=== PATIENT | female | born 1955 | race Caucasian/White ===

== ENCOUNTER → 2017-03-04 | Outpatient (CLI) | payer BC ==
[2017-03-04 11:55] LABS: CH 29.5; CHCM 34.5; HCT 46.6 % (34.0-46.0); HDW 2.67; HGB 15.7 gm/dL (11.4-16.0); MCHC 33.8 g/dL (31.0-37.0); MCV 85.9 fL (80.0-100.0); Mean Platelet Volume 6.6; RBC 5.42 m/uL (3.80-5.40); WBC 14.5 k/uL (3.8-10.6)
[2017-03-04 12:04] LABS: Appearance,Urine Clear (Clear); Bilirubin,Urine Negative (Negative); Glucose,Urine (UA) Negative (Negative); Ketones,Urine Negative (Negative); Leukocyte Esterase,Urine Negative (Negative); Nitrite,Urine Negative (Negative); PH, Urine 5.5 (5.0-8.0); Protein,Urine Negative (Negative); Specific Gravity,Urine 1.017 (1.001-1.035); UA Billing (MACRO vs. MICRO) CHEM; Urobilinogen,Urine <2.0 mg/dL (<2.0)
[2017-03-04 12:25] LABS: ALT 54 U/L (9-52); AST 28 U/L (14-36); Alkaline Phosphatase 128 U/L (38-126); Anion Gap 15 mmol/L; Blood Urea Nitrogen 17 mg/dL (7-17); Calcium 10.1 mg/dL (8.4-10.2); Carbon Dioxide 24 mmol/L (22-30); Chloride 105 mmol/L (98-107); Cholesterol 247 mg/dL (<200); Glucose 126 mg/dL (74-99); HDL Cholesterol 45 mg/dL (40-60); Non-African American GFR(MDRD) >60 (>60 ml/min/1.73 sqM); Potassium 4.6 mmol/L (3.5-5.1); Sodium 144 mmol/L (137-145); Total Bilirubin 0.4 mg/dL (0.2-1.3); Total Protein 7.7 g/dL (6.3-8.2); Triglycerides 209 mg/dL (<150)
--- NOTE | 2017-03-04 15:37 | XR ---
EXAMINATION TYPE: XR chest 2V DATE OF EXAM: 03/04/2017 HISTORY: Z00.00 Wellness check. REFERENCE: NONE. FINDINGS: The lungs are clear. Pleural spaces are clear. The heart is not enlarged. IMPRESSION: NO ACUTE INTRATHORACIC ABNORMALITY.
== END | disposition home or self-care (01) ==
LOC: LABWHC1 11:28
PROVIDERS: ATTEND Internal Medicine
DX: Z00.00 Encounter for general adult medical examination without abnormal findings (principal); I11.9 Hypertensive heart disease without heart failure; E78.2 Mixed hyperlipidemia; K21.0 Gastro-esophageal reflux disease with esophagitis; R35.0 Frequency of micturition
CPT/HCPCS: 36415; 71020; 80053; 80061; 81003; 84439; 84443; 85027

== ENCOUNTER → 2017-04-06 | Outpatient (CLI) | payer BC ==
[2017-04-06 13:49] LABS: Glucose 111 mg/dL (74-99)
[2017-04-06 14:21] LABS: Hepatitis B Surface Ag Index 0.07
[2017-04-06 14:26] LABS: Hepatitis B Core IgM Index 0.03
[2017-04-06 14:38] LABS: Hepatitis C Virus IgG Ab Negative (Negative); Hepatitis C Virus IgG Index 0.04
[2017-04-06 18:36] LABS: Hemoglobin A1C 6.2 % (4.2-6.1)
== END | disposition home or self-care (01) ==
LOC: LABWHC1 12:41
PROVIDERS: ATTEND Internal Medicine
DX: E11.9 Type 2 diabetes mellitus without complications (principal); R94.5 Abnormal results of liver function studies
CPT/HCPCS: 36415; 80074; 82947; 83036

== ENCOUNTER → 2018-11-07 | Outpatient (CLI) | payer BC ==
[2018-11-07 18:35] LABS: LDL Cholesterol,Calculated 156.2 mg/dL (0.0-131.0); VLDL Calculation 71.8 mg/dL (5.00-40.00)
[2018-11-07 18:36] LABS: Anion Gap 13.1 mmol/L (4.00-12.00); Calcium 10.2 mg/dL (8.7-10.3); Carbon Dioxide 27.9 mmol/L (21.6-31.8); Potassium 4.4 mmol/L (3.5-5.5)
== END | disposition home or self-care (01) ==
LOC: LABWHC1 12:18
PROVIDERS: ATTEND Internal Medicine
DX: E78.2 Mixed hyperlipidemia (principal); I11.9 Hypertensive heart disease without heart failure
CPT/HCPCS: 36415; 80048; 80061; 82550; 84450; 84460

== ENCOUNTER 2023-09-04 13:43 | Emergency (ER) | payer MEDICARE ==
--- NOTE | 2023-09-04 14:37 | ED ---
General Adult HPI - General Source: patient, RN notes reviewed Mode of arrival: ambulatory Limitations: no limitations <Mary Nuno - Last Filed: 09/04/23 14:36> - General Source: RN notes reviewed, old records reviewed Mode of arrival: ambulatory Limitations: no limitations - History of Present Illness -: days(s) Location: chest, back, abdomen Radiation: abdomen Severity scale (1-10): 7 Quality: aching Consistency: constant, intermittent Improves with: none Worsens with: none Associated Symptoms: denies other symptoms Treatments Prior to Arrival: none <Abraham Kenney - Last Filed: 09/18/23 20:44> - General Stated complaint: Bumps all over Body Time Seen by Provider: 09/04/23 14:36 - History of Present Illness Initial comments: 67-year-old femalepresents the emergency department with itchy bumps all over her body and progressively has gotten worse over the last week. (Mary Nuno) This is a 67-year-old female to the emergency department for evaluation of an itchy rash over the course of her body. Patient has no family members with recent known sugars is currently rash. Patient does live alone has had issues with fleas in the past does not believe that is the case currently. Patient is very itchy cannot control her scratching. No fevers no other complaints no change in medications or travel history or sick contacts (Abraham Kenney) - Related Data Previous Rx's Medication Instructions Recorded predniSONE [Deltasone] 20 mg PO BID 5 Days #10 tab 10/24/22 Famotidine [Pepcid] 40 mg PO BID #30 tablet 09/04/23 hydrOXYzine HCL [Atarax] 25 mg PO TID PRN #15 tab 09/04/23 predniSONE 50 mg PO DAILY #5 tablet 09/04/23 Allergies Allergy/AdvReac Type Severity Reaction Status Date / Time No Known Allergies Allergy Verified 09/04/23 14:35 Review of Systems ROS Other: All systems not noted in ROS Statement are negative. <Mary Nuno - Last Filed: 09/04/23 14:36> ROS Other: All systems not noted in ROS Statement are negative. <Abraham Kenney - Last Filed: 09/18/23 20:44> ROS Statement: Those systems with pertinent positive or pertinent negative responses have been documented in the HPI. Past Medical History Past Medical History: Osteoarthritis (OA) History of Any Multi-Drug Resistant Organisms: None Reported Past Surgical History: Hysterectomy Past Psychological History: Anxiety, Depression Smoking Status: Never smoker Past Alcohol Use History: None Reported Past Drug Use History: None Reported <Mary Nuno - Last Filed: 09/04/23 14:36> General Exam Limitations: no limitations <Mary Nuno - Last Filed: 09/04/23 14:36> General appearance: alert, in no apparent distress Head exam: Present: atraumatic, normocephalic, normal inspection Eye exam: Present: normal appearance, PERRL, EOMI. Absent: scleral icterus, conjunctival injection, periorbital swelling ENT exam: Present: normal exam, mucous membranes moist Neck exam: Present: normal inspection. Absent: tenderness, meningismus, lymphadenopathy Respiratory exam: Present: normal lung sounds bilaterally. Absent: respiratory distress, wheezes, rales, rhonchi, stridor Cardiovascular Exam: Present: regular rate, normal rhythm, normal heart sounds. Absent: systolic murmur, diastolic murmur, rubs, gallop, clicks GI/Abdominal exam: Present: soft, normal bowel sounds. Absent: distended, tenderness, guarding, rebound, rigid Extremities exam: Present: normal inspection, full ROM, normal capillary refill. Absent: tenderness, pedal edema, joint swelling, calf tenderness Back exam: Present: normal inspection Neurological exam: Present: alert, oriented X3, CN II-XII intact Psychiatric exam: Present: normal affect, normal mood Skin exam: Present: warm, dry, intact, normal color. Absent: rash <Abraham Kenney - Last Filed: 09/18/23 20:44> - General Exam Comments Initial Comments: Visual Physical Exam Vital signs reviewed General: Well-appearing, nontoxic, no acute distress. Head: Normocephalic, atraumatic Eyes: PERRLA, EOMI ENT: Airway patent Chest: Nonlabored breathing Skin: No visual rash, normal skin tone Neuro: Alert and oriented 3 Musculoskeletal: No gross abnormalities (Mary Nuno) Course <Abraham Kenney - Last Filed: 09/18/23 20:44> Vital Signs 09/04/23 14:31 Temperature 98.6 F Pulse Rate 81 Respiratory 18 Rate Blood Pressure 174/92 O2 Sat by Pulse 97 Oximetry - Reevaluation(s) Reevaluation #1: Medical records reviewed (Abraham Kenney) Reevaluation #2: Patient symptoms are improved (Abraham Kenney) Reevaluation #3: Patient informed of results questions answered (Abraham Kenney) Reevaluation #4: Was pt. sent in by a medical professional or institution (GRACIELA Cabrera, FLANGING ROLL OPERATOR, urgent care, hospital, or [place] health care facility...) When possible be specific @ -no Did you speak to anyone other than the patient for history (EMS, parent, family, police, friend...)? What history was obtained from this source @ -no Did you review nursing and triage notes (agree or disagree)? Why? @ -agree Are old charts reviewed (outside hosp., previous admission, EMS record, old EKG, old radiological studies, urgent care reports/EKG's, [place] health [facility] facility records)? Report findings @ -yes Differential Diagnosis (chest pain, altered mental status, abdominal pain women, abdominal pain men, vaginal bleeding, weakness, fever, dyspnea, syncope, headache, dizziness, GI bleed, back pain, seizure, CVA, palpatations, mental health, musculoskeletal)? @ -prior EKG interpreted by me (3pts min.). @ -no X-rays interpreted by me (1pt min.). @ -no CT interpreted by me (1pt min.). @ -no U/S interpreted by me (1pt. min.). @ -no What testing was considered but not performed or refused? (CT, X-rays, U/S, labs)? Why? @ -none What meds were considered but not given or refused? Why? @ -none Did you discuss the management of the patient with other professionals (professionals i.e. GRACIELA Cabrera, FLANGING ROLL OPERATOR, lab, RT, psych nurse, protective services social worker, business division chair, teacher, licensed loan officer assistant, employment evaluator/case manager)? Give summary @ -no Was smoking cessation discussed for >3mins.? @ -no Was critical care preformed (if so, how long)? @ -no Were there social determinants of health that impacted care today? How? (Ho melessness, low income, unemployed, alcoholism, drug addiction, transportation, low edu. Level, literacy, decrease access to med. care, correction, rehab)? @ -none Was there de-escalation of care discussed even if they declined (Discuss DNR or withdrawal of care, Hospice)? DNR status @ -no What co-morbidities impacted this encounter? (DM, HTN, Smoking, COPD, CAD, Cancer, CVA, ARF, Chemo, Hep., AIDS, mental health diagnosis, sleep apnea, morbid obesity)? @ -none Was patient admitted / discharged? Hospital course, mention meds given and route, prescriptions, significant lab abnormalities, going to OR and other pertinent info. @ - 67 female with generalized rash and urticarial reaction. Patient given symptomatically therapy can be discharged home Discharge Undiagnosed new problem with uncertain prognosis? @ -no Drug Therapy requiring intensive monitoring for toxicity (Heparin, Nitro, Insulin, Cardizem)? @ -no Were any procedures done? @ -no Diagnosis/symptom? @ -Urticarial ration reaction Acute, or Chronic, or Acute on Chronic? @ -Acute Uncomplicated (without systemic symptoms) or Complicated (systemic symptoms)? @ -Complicated Side effects of treatment? @ -no Exacerbation, Progression, or Severe Exacerbation? @ -exacerbation Poses a threat to life or bodily function? How? (Chest pain, USA, RI, pneumonia, PE, COPD, DKA, ARF, appy, cholecystitis, CVA, Diverticulitis, Homicidal, Suicidal, threat to staff... and all critical care pts) @ -yes some rashes can be life-threatening (Abraham Kenney) Medical Decision Making <Mary Nuno - Last Filed: 09/04/23 14:36> <Abraham Kenney - Last Filed: 09/18/23 20:44> - Medical Decision Making I performed the quick note portion of this exam, verbal signature Mary Nuno PA-C (Mary Nuno) 67 female with generalized rash and urticarial reaction. Patient given sy mptomatically therapy can be discharged home (Abraham Kenney) Disposition <Mary Nuno - Last Filed: 09/04/23 14:36> Is patient prescribed a controlled substance at d/c from ED?: No Time of Disposition: 16:45 <Abraham Kenney - Last Filed: 09/18/23 20:44> Clinical Impression: Urticaria Disposition: HOME SELF-CARE Condition: Good Instructions (If sedation given, give patient instructions): Urticaria (ED) Prescriptions: hydrOXYzine HCL [Atarax] 25 mg PO TID PRN #15 tab PRN Reason: Itching Famotidine [Pepcid] 40 mg PO BID #30 tablet predniSONE 50 mg PO DAILY #5 tablet Referrals: Carmella Cordon MD [Primary Care Provider] - 1-2 days
[2023-09-04 14:58] VITALS: BP 174/92; PULSE 81; RESP 18; TEMP 98.6
[2023-09-04] MEDS ORDERED: TRIAMCINOLONE ACET 0.1% OINTMENT 15 GM TUBE TOPICAL STA (16:45)
[2023-09-04] MEDS ORDERED: predniSONE 20 MG TAB PO STA (16:45)
[2023-09-04] MEDS ORDERED: hydrOXYzine HCL 25 MG TAB PO STA (16:45)
[2023-09-04] MEDS ORDERED: FAMOTIDINE 20 MG TAB PO STA (16:45)
== END 2023-09-04 17:52 | disposition home or self-care (01) ==
LOC: EC 13:43
DX: L50.9 Urticaria, unspecified (principal); Z86.59 Personal history of other mental and behavioral disorders
CPT/HCPCS: 99282; J7512

== ENCOUNTER → 2024-01-09 | Outpatient (CLI) | payer MEDICARE ==
--- NOTE | 2024-01-09 17:44 | XR ---
EXAMINATION TYPE: XR Hip Complete 2 views RT DATE OF EXAM: 01/09/2024 Comparison: 10/24/2022 Clinical History: 68-year-old female pain for one week, M25.551 Pain rt hip Findings: There is mild degenerative change of the right hip with subchondral sclerosis and marginal spurring. Some fragmented spurring at the greater trochanter. No acute fracture, subluxation, or dislocation. Impression: Mild right hip OA. Progressed from 2022. No acute osseous abnormality seen.
== END | disposition home or self-care (01) ==
LOC: RADXRMAIN 10:10
PROVIDERS: ATTEND Family Medicine
DX: M16.11 Unilateral primary osteoarthritis, right hip (principal)
CPT/HCPCS: 73502

== ENCOUNTER 2024-01-11 15:11 | Emergency (ER) | payer MEDICARE ==
--- NOTE | 2024-01-11 16:43 | ED ---
Lower Extremity Injury HPI - General Chief Complaint: Extremity Injury, Lower Stated Complaint: R ankle pain Time Seen by Provider: 01/11/24 16:25 Source: patient Mode of arrival: ambulatory Limitations: no limitations - History of Present Illness Initial Comments: 68-year-old female presenting with chief complaint of right ankle pain. Patient reports that yesterday afternoon she was making herself lunch when she began to feel dizzy. She states that she was wearing a back brace at that time and thinks that it may have been too tight causing her to take shallow breaths. She states that she tried to lower herself to the ground, and lost consciousness. When she regained consciousness she had pain and swelling to the right ankle. Patient denies any chest pain, headache, vision or hearing changes, numbness, tingling, weakness. - Related Data Previous Rx's Medication Instructions Recorded RX: predniSONE [Deltasone] 20 mg PO BID 5 Days #10 tab 10/24/22 Famotidine [Pepcid] 40 mg PO BID #30 tablet 09/04/23 RX: hydrOXYzine HCL [Atarax] 25 mg PO TID PRN #15 tab 09/04/23 RX: predniSONE 50 mg PO DAILY #5 tablet 09/04/23 Allergies Allergy/AdvReac Type Severity Reaction Status Date / Time No Known Allergies Allergy Verified 09/04/23 14:35 Review of Systems ROS Statement: Those systems with pertinent positive or pertinent negative responses have been documented in the HPI. ROS Other: All systems not noted in ROS Statement are negative. Past Medical History Past Medical History: Osteoarthritis (OA) History of Any Multi-Drug Resistant Organisms: None Reported Past Surgical History: Hysterectomy, Tonsillectomy Past Psychological History: Anxiety, Depression Smoking Status: Never smoker Past Alcohol Use History: None Reported Past Drug Use History: None Reported General Exam Limitations: no limitations General appearance: alert, in no apparent distress Head exam: Present: atraumatic, normocephalic Eye exam: Present: normal appearance, PERRL, EOMI Pupils: Present: normal accommodation Neck exam: Present: normal inspection, full ROM. Absent: tenderness Respiratory exam: Present: normal lung sounds bilaterally. Absent: respiratory distress, wheezes, rales, rhonchi, stridor Cardiovascular Exam: Present: regular rate, normal rhythm, normal heart sounds. Absent: systolic murmur, diastolic murmur, rubs, gallop, clicks Right Ankle exam: Present: tenderness, swelling, ecchymosis. Absent: normal inspection, full ROM Neurovascular tendon exam: Present: no vascular compromise Neurological exam: Present: alert, oriented X3 Psychiatric exam: Present: normal affect, normal mood Skin exam: Present: warm, dry Course Vital Signs 01/11/24 01/11/24 01/11/24 15:31 16:39 18:11 Temperature 98.3 F Pulse Rate 76 67 86 Respiratory 18 16 18 Rate Blood Pressure 106/70 115/98 177/72 O2 Sat by Pulse 96 95 96 Oximetry Procedures - Orthopedic Splinting/Casting Injury #1 Side: right Lower Extremity Injury Location: ankle Lower Extremity Immobilizer: posterior splint Medical Decision Making - Medical Decision Making Was pt. sent in by a medical professional or institution (, PA, DINKEY ENGINE FIRER, urgent care, hospital, or half-way...) When possible be specific @ -No Did you speak to anyone other than the patient for history (EMS, parent, family, police, friend...)? What history was obtained from this source @ -No Did you review nursing and triage notes (agree or disagree)? Why? @ -I reviewed and agree with nursing and triage notes Were old charts reviewed (outside hosp., previous admission, EMS record, old EKG, old radiological studies, urgent care reports/EKG's, half-way records)? Report findings @ -No old charts were reviewed Differential Diagnosis (chest pain, altered mental status, abdominal pain women, abdominal pain men, vaginal bleeding, weakness, fever, dyspnea, syncope, headache, dizziness, GI bleed, back pain, seizure, CVA, palpatations, mental health, musculoskeletal)? @ -MDM Differential Syncope: Valvular disease, hypertrophic cardiomyopathy, pulmonary embolism, tamponade, tachycardia, bradycardia, MD, hypovolemia, hemorrhage, dissection, anemia, intracranial hemorrhage, seizure, hypoglycemia, carbon monoxide poisoning this is not meant to be an all-inclusive list. EKG interpreted by me (3pts min.). @ -EKG shows sinus rhythm ventricular rate 69. ND interval 184. QRS 87. QT 370. QTc 390. X-rays interpreted by me (1pt min.). @ -X-ray positive for unstable bimalleolar equivalent ankle fracture. Associated soft tissue swelling. CT interpreted by me (1pt min.). @ -CT shows a partially calcified area in the left basal ganglia measuring up to 2.0 cm. The exact etiology and clinical significance is unclear. Cavernous malformation is possible. Some subtle associated intralesional hemorrhage would be difficult to exclude as there are no priors available to assess stability. A CAPN ON lesion is a consideration as well. Oligodendroglioma can have a similar appearance but may be less likely given the lack of adjacent vasogenic edema. Consider further evaluation with MRI without and with contrast and neurosurgery evaluation. Otherwise no acute intracranial abnormality seen. U/S interpreted by me (1pt. min.). @ -None done What testing was considered but not performed or refused? (CT, X-rays, U/S, labs)? Why? @ -None What meds were considered but not given or refused? Why? @ -None Did you discuss the management of the patient with other professionals (professionals i.e. , PA, DINKEY ENGINE FIRER, lab, RT, psych nurse, social director, work counselor, teacher, public information officer, director case management)? Give summary @ -Spoke with Dr. De Los Santos at [facility] who accepted transfer Was smoking cessation discussed for >3mins.? @ -No Was critical care preformed (if so, how long)? @ -No Were there social determinants of health that impacted care today? How? (Homelessness, low income, unemployed, alcoholism, drug addiction, transportation, low edu. Level, literacy, decrease access to med. care, [facility], rehab)? @ -No Was there de-escalation of care discussed even if they declined (Discuss DNR or withdrawal of care, Hospice)? DNR status @ -No What co-morbidities impacted this encounter? (DM, HTN, Smoking, COPD, CAD, Cancer, CVA, ARF, Chemo, Hep., AIDS, mental health diagnosis, sleep apnea, morbid obesity)? @ -None Was patient admitted / discharged? Hospital course, mention meds given and route, prescriptions, significant lab abnormalities, going to OR and other pertinent info. @ -68-year-old female presenting with chief complaint of right ankle pain. This started after syncopal episode yesterday. While obtaining the history the patient has a confusing chain of events that resulted in her ankle injury. She states that she tried to lower herself to the ground, but is not confident that she was unable to do so. Lab work is obtained which requires no action. X-rays positive for bimalleolar equivalent unstable fracture. The patient is placed in a posterior short leg splint. The brain CT shows a 2 cm partially calcified area of the left basal ganglia. There are no prior images for comparison. They advised neurosurgery evaluation. The patient will be transferred to [facility]. Patient is agreeable with this plan. I discussed this case with my attending Dr. [place]. Undiagnosed new problem with uncertain prognosis? @ -No Drug Therapy requiring intensive monitoring for toxicity (Heparin, Nitro, Insulin, Cardizem)? @ -No Were any procedures done? @ -No Diagnosis/symptom? @ -Ankle fracture, calcified area of the basal ganglia Acute, or Chronic, or Acute on Chronic? @ -Acute Uncomplicated (without systemic symptoms) or Complicated (systemic symptoms)? @ -Complicated Side effects of treatment? @ -No Exacerbation, Progression, or Severe Exacerbation? @ -No Poses a threat to life or bodily function? How? (Chest pain, USA, MD, pneumonia, PE, COPD, DKA, ARF, appy, cholecystitis, CVA, Diverticulitis, Homicidal, Suicidal, threat to staff... and all critical care pts) @ -Yes - Lab Data Result diagrams: 01/11/24 17:03 01/11/24 17:03 Lab Results 01/11/24 01/11/24 01/11/24 Range/Units 17:03 17:03 17:03 WBC 10.6 (3.8-10.6) k/uL RBC 4.69 (3.80-5.40) m/uL Hgb 13.9 (11.4-16.0) gm/dL Hct 42.2 (34.0-46.0) % MCV 89.9 (80.0-100.0) fL MCH 29.6 (25.0-35.0) pg MCHC 32.9 (31.0-37.0) g/dL RDW 13.4 (11.5-15.5) % Plt Count 307 (150-450) k/uL MPV 7.5 Neutrophils % 73 % Lymphocytes % 21 % Monocytes % 5 % Eosinophils % 1 % Basophils % 0 % Neutrophils # 7.7 (1.3-7.7) k/uL Lymphocytes # 2.2 (1.0-4.8) k/uL Monocytes # 0.5 (0-1.0) k/uL Eosinophils # 0.1 (0-0.7) k/uL Basophils # 0.0 (0-0.2) k/uL PT 10.0 (10.0-12.5) sec INR 0.9 (<1.2) APTT 24.1 (22.0-30.0) sec Sodium 141 (137-145) mmol/L Potassium 4.8 (3.5-5.1) mmol/L Chloride 107 (98-107) mmol/L Carbon Dioxide 23 (22-30) mmol/L Anion Gap 11 mmol/L BUN 20 H (7-17) mg/dL Creatinine 0.98 (0.52-1.04) mg/dL Est GFR (CKD-EPI)AfAm 68 (>60 ml/min/1.73 sqM) Est GFR (CKD-EPI)NonAf 59 (>60 ml/min/1.73 sqM) Glucose 96 (74-99) mg/dL Calcium 9.8 (8.4-10.2) mg/dL Total Bilirubin 0.5 (0.2-1.3) mg/dL AST 30 (14-36) U/L ALT 21 (4-34) U/L Alkaline Phosphatase 90 (38-126) U/L Troponin I (0.000-0.034) ng/mL Total Protein 7.1 (6.3-8.2) g/dL Albumin 4.5 (3.5-5.0) g/dL 01/11/24 Range/Units 17:03 WBC (3.8-10.6) k/uL RBC (3.80-5.40) m/uL Hgb (11.4-16.0) gm/dL Hct (34.0-46.0) % MCV (80.0-100.0) fL MCH (25.0-35.0) pg MCHC (31.0-37.0) g/dL RDW (11.5-15.5) % Plt Count (150-450) k/uL MPV Neutrophils % % Lymphocytes % % Monocytes % % Eosinophils % % Basophils % % Neutrophils # (1.3-7.7) k/uL Lymphocytes # (1.0-4.8) k/uL Monocytes # (0-1.0) k/uL Eosinophils # (0-0.7) k/uL Basophils # (0-0.2) k/uL PT (10.0-12.5) sec INR (<1.2) APTT (22.0-30.0) sec Sodium (137-145) mmol/L Potassium (3.5-5.1) mmol/L Chloride (98-107) mmol/L Carbon Dioxide (22-30) mmol/L Anion Gap mmol/L BUN (7-17) mg/dL Creatinine (0.52-1.04) mg/dL Est GFR (CKD-EPI)AfAm (>60 ml/min/1.73 sqM) Est GFR (CKD-EPI)NonAf (>60 ml/min/1.73 sqM) Glucose (74-99) mg/dL Calcium (8.4-10.2) mg/dL Total Bilirubin (0.2-1.3) mg/dL AST (14-36) U/L ALT (4-34) U/L Alkaline Phosphatase (38-126) U/L Troponin I <0.012 (0.000-0.034) ng/mL Total Protein (6.3-8.2) g/dL Albumin (3.5-5.0) g/dL Disposition Clinical Impression: Calcification of basal ganglia, Ankle fracture Disposition: OTHER INSTITUTION NOT DEFINED Condition: Stable Referrals: Carmella Cordon MD [Primary Care Provider] - 1-2 days Time of Disposition: 19:03 - Out of Hospital Transfer - Req. Specs Out of Hospital Transfer - Requested Specifics: Other Emergency Center ([facility])
[2024-01-11] MEDS: SODIUM CHLORIDE 0.9% 500 ML 500 ML IV STA (17:00)
[2024-01-11 17:33] LABS: ALT 21 U/L (4-34); AST 30 U/L (14-36); African American GFR (CKD) 68 (>60 ml/min/1.73 sqM); Albumin 4.5 g/dL (3.5-5.0); Alkaline Phosphatase 90 U/L (38-126); Anion Gap 11 mmol/L; Blood Urea Nitrogen 20 mg/dL (7-17); Calcium 9.8 mg/dL (8.4-10.2); Carbon Dioxide 23 mmol/L (22-30); Chloride 107 mmol/L (98-107); Glucose 96 mg/dL (74-99); Non-African American GFR(CKD) 59 (>60 ml/min/1.73 sqM); Potassium 4.8 mmol/L (3.5-5.1); Sodium 141 mmol/L (137-145); Total Bilirubin 0.5 mg/dL (0.2-1.3); Total Protein 7.1 g/dL (6.3-8.2)
[2024-01-11 17:46] LABS: INR 0.9 (<1.2); Partial Thromboplastin Time 24.1 sec (22.0-30.0)
--- NOTE | 2024-01-11 17:46 | XR ---
EXAMINATION TYPE: XR chest 2V DATE OF EXAM: 01/11/2024 COMPARISON: 03/04/2017 HISTORY: 68-year-old female with syncope TECHNIQUE: PA and lateral views FINDINGS: Heart normal size. Atherosclerotic arch calcifications. Pulmonary vasculature within normal limits. N o consolidation or pleural effusion. IMPRESSION: No acute cardiopulmonary process.
--- NOTE | 2024-01-11 17:49 | XR ---
EXAMINATION TYPE: XR ankle complete 3 views RT, XR foot complete 3 views RT DATE OF EXAM: 01/11/2024 COMPARISON: NONE HISTORY: 68-year-old female syncopal episode with fall and pain FINDINGS: Ankle: Oblique fracture distal fibular shaft with minimal 2 mm of offset. There is medial clear space wideni ng up to 5 mm suggesting deltoid ligament disruption. Talar dome is intact. No posterior malleolar fr acture is seen. Circumferential soft tissue swelling especially laterally. Small delineation to the A chilles tendon. Subtalar joint alignment appears multiple plantar heel spur. Foot: Bunion formation. No acute fracture, subluxation, dislocation. IMPRESSION (ankle and foot): Unstable bimalleolar equivalent ankle fracture. Associated soft tissue swelling.
[2024-01-11 17:55] LABS: Basophils % (A) 0 %; Eosinophils # (A) 0.1 k/uL (0-0.7); Eosinophils % (A) 1 %; HCT 42.2 % (34.0-46.0); HGB 13.9 gm/dL (11.4-16.0); Lymphocytes # (A) 2.2 k/uL (1.0-4.8); Lymphocytes % (A) 21 %; MCH 29.6 pg (25.0-35.0); MCHC 32.9 g/dL (31.0-37.0); MCV 89.9 fL (80.0-100.0); Mean Platelet Volume 7.5; Monocytes # (A) 0.5 k/uL (0-1.0); Monocytes % (A) 5 %; Neutrophils # (A) 7.7 k/uL (1.3-7.7); Neutrophils % (A) 73 %; Platelet Count 307 k/uL (150-450); RBC 4.69 m/uL (3.80-5.40); RDW 13.4 % (11.5-15.5); WBC 10.6 k/uL (3.8-10.6)
--- NOTE | 2024-01-11 17:59 | CT ---
EXAMINATION TYPE: CT brain wo con DATE OF EXAM: 01/11/2024 COMPARISON: None HISTORY: 68-year-old female SYNCOPE TECHNIQUE: Examination was done in axial plane without intravenous contrast. Coronal and sagittal r econstructions performed. CT DLP: 1095.4 mGycm Automated exposure control for dose reduction was used. FINDINGS: There is a partially calcified area within the left basal ganglia measuring up to 2.0 cm. No evidence surrounding vasogenic edema or mass effect. No other evidence for acute intracranial hemorrhage, acute ischemic change, mass, mass effect, midlin e shift, or extra-axial fluid collection. No hydrocephalus. No effacement of cerebral sulci or basal subarachnoid cisterns. Goins-white matter differentiation is maintained. Paranasal sinuses and mastoid air cells well pneumatized. Orbital globes are intact IMPRESSION: 1. A partially calcified area in the left basal ganglia measuring up to 2.0 cm. The exact etiology an d clinical significance is unclear. A cavernous malformation is possible. Some subtle associated intr alesional hemorrhage would be difficult to exclude as there are no priors available to assess stabili ty. A CAPNON lesion is a consideration as well. Oligodendroglioma can have a similar appearance but m ay be less likely given the lack of adjacent vasogenic edema. Consider further evaluation with MRI wi thout and with contrast and neurosurgery evaluation. 2. Otherwise, no acute intracranial abnormality seen.
[2024-01-11] MEDS: HYDROcodone/APAP 7.5-325MG 1 EACH TAB PO ONE (18:23)
[2024-01-11] MEDS: HYDROmorphone 1 MG/ML 1 ML SYRINGE IVP STA (18:45)
[2024-01-11 18:52] VITALS: RESP 18
[2024-01-11 20:08] VITALS: BP 134/76; PULSE 74; TEMP 98.4
[2024-01-11] MEDS: LORazepam 2 MG/ML INJ IV STA (20:10)
== END 2024-01-11 19:36 | disposition other institution (70) ==
LOC: EC 15:11
DX: S82.841A Displaced bimalleolar fracture of right lower leg, initial encounter for closed fracture (principal); G23.8 Other specified degenerative diseases of basal ganglia; W18.39XA Other fall on same level, initial encounter
CPT/HCPCS: 36415; 93005; 80053; 84484; 85025; 85610; 85730; 73610; 73630; 71046; 70450; 29515; 99285; 96374; 96361; J2060

== ENCOUNTER 2024-01-26 17:50 | Emergency (ER) | payer MEDICARE ==
--- NOTE | 2024-01-26 18:13 | ED ---
Abdominal Pain HPI - General Source: patient, RN notes reviewed <Tiarra Phan - Last Filed: 01/26/24 18:11> <Horace Alva - Last Filed: 02/17/24 06:40> - General Stated Complaint: Back pain Time Seen by Provider: 01/26/24 18:05 - History of Present Illness Initial Comments: Umu montez is a 68-year-old female presents emergency department chief complaint of right-sided back and flank pain over the last 2 days. Denies fevers, nausea, vomiting, urinary frequency or urgency, hematuria, urinary retention. Patient states that she has a history infections. Denies recent antibiotic use. (Tiarra Phan) - Related Data Previous Rx's Medication Instructions Recorded predniSONE [Deltasone] 20 mg PO BID 5 Days #10 tab 10/24/22 Famotidine [Pepcid] 40 mg PO BID #30 tablet 09/04/23 hydrOXYzine HCL [Atarax] 25 mg PO TID PRN #15 tab 09/04/23 predniSONE 50 mg PO DAILY #5 tablet 09/04/23 Allergies Allergy/AdvReac Type Severity Reaction Status Date / Time Iodinated Contrast Media Allergy Unknown Verified 01/26/24 18:15 Review of Systems ROS Other: All systems not noted in ROS Statement are negative. <Tiarra Phan - Last Filed: 01/26/24 18:11> ROS Other: All systems not noted in ROS Statement are negative. <Horace Alva - Last Filed: 02/17/24 06:40> ROS Statement: Those systems with pertinent positive or pertinent negative responses have been documented in the HPI. Past Medical History Past Medical History: Osteoarthritis (OA) History of Any Multi-Drug Resistant Organisms: None Reported Past Surgical History: Hysterectomy, Tonsillectomy Past Psychological History: Anxiety, Depression Smoking Status: Never smoker Past Alcohol Use History: None Reported Past Drug Use History: None Reported <Tiarra Phan - Last Filed: 01/26/24 18:11> General Exam <Tiarra Phan - Last Filed: 01/26/24 18:11> Limitations: no limitations General appearance: alert, in no apparent distress Head exam: Present: atraumatic, normocephalic Eye exam: Present: normal appearance. Absent: scleral icterus, conjunctival injection Neck exam: Present: normal inspection, full ROM Respiratory exam: Present: normal lung sounds bilaterally. Absent: respiratory distress, wheezes, rales, rhonchi, stridor, accessory muscle use Cardiovascular Exam: Present: regular rate, normal rhythm, normal heart sounds. Absent: systolic murmur, diastolic murmur, rubs, gallop GI/Abdominal exam: Present: soft. Absent: distended, tenderness, guarding, rebound, rigid, mass Extremities exam: Present: normal inspection, normal capillary refill. Absent: pedal edema, calf tenderness Back exam: Present: normal inspection, paraspinal tenderness. Absent: CVA tenderness (R), CVA tenderness (L), vertebral tenderness Neurological exam: Present: alert, reflexes normal. Absent: motor sensory deficit Skin exam: Present: warm, dry, intact, normal color. Absent: rash <Horace Alva - Last Filed: 02/17/24 06:40> - General Exam Comments Initial Comments: Visual Physical Exam Vital signs reviewed General: Well-appearing, nontoxic, no acute distress. Head: Normocephalic, atraumatic Eyes: PERRLA, EOMI ENT: Airway patent Chest: Nonlabored breathing Skin: No visual rash, normal skin tone Neuro: Alert and oriented 3 Musculoskeletal: No gross abnormalities (Tiarra Phan) Course Vital Signs 01/26/24 01/27/24 18:12 00:31 Temperature 98.2 F Pulse Rate 74 74 Respiratory 16 16 Rate Blood Pressure 106/70 186/85 O2 Sat by Pulse 96 98 Oximetry Medical Decision Making <Tiarra Phan - Last Filed: 01/26/24 18:11> - Lab Data Result diagrams: 01/26/24 21:45 01/26/24 21:45 <Horace Alva - Last Filed: 02/17/24 06:40> - Medical Decision Making I completed the quick note portion of this chart signed Tiarra Phan PA-C (Tiarra Phan) The patient had CT of the abdomen and pelvis which I interpreted as negative for evidence of aneurysm/dissection. No acute bony trauma. Was pt. sent in by a medical professional or institution (, [facility], [facility], urgent care, hospital, or shelter...) When possible be specific @ -[No] Did you speak to anyone other than the patient for history (EMS, parent, family, police, friend...)? What history was obtained from this source @ -[No] Did you review nursing and triage notes (agree or disagree)? Why? @ -[I reviewed and agree with nursing and triage notes] Were old charts reviewed (outside hosp., previous admission, EMS record, old EKG, old radiological studies, urgent care reports/EKG's, shelter records)? Report findings @ -[No old charts were reviewed] Differential Diagnosis (chest pain, altered mental status, abdominal pain women, abdominal pain men, vaginal bleeding, weakness, fever, dyspnea, syncope, headache, dizziness, GI bleed, back pain, seizure, CVA, palpatations, mental health, musculoskeletal)? @ -[Differential Back Pain: Strain, zoster, cauda equina syndrome, epidural abscess, vertebral osteomyelitis, discitis, fracture, subluxation, disc herniation, DJD, spinal stenosis, dissection, AAA, pancreatitis, peptic ulcer disease, pyelonephritis, kidney stone, this is not meant to be an all-inclusive list. EKG interpreted by me (3pts min.). @ -[As above] X-rays interpreted by me (1pt min.). @ -[None done] CT interpreted by me (1pt min.). @ -[I interpreted as above U/S interpreted by me (1pt. min.). @ -[None done] What testing was considered but not performed or refused? (CT, X-rays, U/S, labs)? Why? @ -[None] What meds were considered but not given or refused? Why? @ -[None] Did you discuss the management of the patient with other professionals (professionals i.e. , PA, [employer], lab, RT, psych nurse, social service worker, president of the [place], teacher, mortgage loan officer, pillowcase turner)? Give summary @ -[No] Was smoking cessation discussed for >3mins.? @ -[No] Was critical care preformed (if so, how long)? @ -[No] Were there social determinants of health that impacted care today? How? (Homelessness, low income, unemployed, alcoholism, drug addiction, transportation, low edu. Level, literacy, decrease access to med. care, usp, rehab)? @ -[No] Was there de-escalation of care discussed even if they declined (Discuss DNR or withdrawal of care, Hospice)? DNR status @ -[No] What co-morbidities impacted this encounter? (DM, HTN, Smoking, COPD, CAD, Cancer, CVA, ARF, Chemo, Hep., AIDS, mental health diagnosis, sleep apnea, morbid obesity)? @ -[None] Was patient admitted / discharged? Hospital course, mention meds given and route, prescriptions, significant lab abnormalities, going to OR and other pertinent info. @ -[hospital course] Undiagnosed new problem with uncertain prognosis? @ -[No] Drug Therapy requiring intensive monitoring for toxicity (Heparin, Nitro, Insulin, Cardizem)? @ -[No] Were any procedures done? @ -[No] Diagnosis/symptom? @ -[Acute back pain Acute, or Chronic, or Acute on Chronic? @ -[Acute Uncomplicated (without systemic symptoms) or Complicated (systemic symptoms)? @ -[Uncomplicated Side effects of treatment? @ -[No] Exacerbation, Progression, or Severe Exacerbation? @ -[No] Poses a threat to life or bodily function? How? (Chest pain, [place], [place], pneumonia, PE, COPD, DKA, ARF, appy, cholecystitis, CVA, Diverticulitis, Homicidal, Suicidal, threat to staff... and all critical care pts) @ -[No] (Horace Alva) - Lab Data Lab Results 01/26/24 01/26/24 01/26/24 Range/Units 21:45 21:45 21:45 WBC 10.3 (3.8-10.6) k/uL RBC 3.97 (3.80-5.40) m/uL Hgb 11.6 (11.4-16.0) gm/dL Hct 36.3 (34.0-46.0) % MCV 91.3 (80.0-100.0) fL MCH 29.2 (25.0-35.0) pg MCHC 32.0 (31.0-37.0) g/dL RDW 13.2 (11.5-15.5) % Plt Count 320 (150-450) k/uL MPV 7.3 Neutrophils % 60 % Lymphocytes % 31 % Monocytes % 5 % Eosinophils % 2 % Basophils % 0 % Neutrophils # 6.1 (1.3-7.7) k/uL Lymphocytes # 3.2 (1.0-4.8) k/uL Monocytes # 0.5 (0-1.0) k/uL Eosinophils # 0.2 (0-0.7) k/uL Basophils # 0.1 (0-0.2) k/uL Sodium 138 (137-145) mmol/L Potassium 4.7 (3.5-5.1) mmol/L Chloride 108 H (98-107) mmol/L Carbon Dioxide 23 (22-30) mmol/L Anion Gap 7 mmol/L BUN 14 (7-17) mg/dL Creatinine 0.84 (0.52-1.04) mg/dL Est GFR (CKD-EPI)AfAm 82 (>60 ml/min/1.73 sqM) Est GFR (CKD-EPI)NonAf 71 (>60 ml/min/1.73 sqM) Glucose 84 (74-99) mg/dL Plasma Lactic Acid Luisito (0.7-2.0) mmol/L Calcium 9.2 (8.4-10.2) mg/dL Total Bilirubin 0.3 (0.2-1.3) mg/dL AST 24 (14-36) U/L ALT 17 (4-34) U/L Alkaline Phosphatase 103 (38-126) U/L Total Protein 6.2 L (6.3-8.2) g/dL Albumin 3.9 (3.5-5.0) g/dL Urine Color Colorless Urine Appearance Clear (Clear) Urine pH 5.0 (5.0-8.0) Ur Specific Franklin 1.011 (1.001-1.035) Urine Protein Negative (Negative) Urine Glucose (UA) Negative (Negative) Urine Ketones Negative (Negative) Urine Blood Negative (Negative) Urine Nitrite Positive H (Negative) Urine Bilirubin Negative (Negative) Urine Urobilinogen <2.0 (<2.0) mg/dL Ur Leukocyte Esterase Negative (Negative) Urine RBC 1 (0-5) /hpf Urine WBC 3 (0-5) /hpf Ur Squamous Epith Cells 1 (0-4) /hpf Urine Bacteria Occasional H (None) /hpf Urine Mucus Rare H (None) /hpf 01/26/24 Range/Units 21:45 WBC (3.8-10.6) k/uL RBC (3.80-5.40) m/uL Hgb (11.4-16.0) gm/dL Hct (34.0-46.0) % MCV (80.0-100.0) fL MCH (25.0-35.0) pg MCHC (31.0-37.0) g/dL RDW (11.5-15.5) % Plt Count (150-450) k/uL MPV Neutrophils % % Lymphocytes % % Monocytes % % Eosinophils % % Basophils % % Neutrophils # (1.3-7.7) k/uL Lymphocytes # (1.0-4.8) k/uL Monocytes # (0-1.0) k/uL Eosinophils # (0-0.7) k/uL Basophils # (0-0.2) k/uL Sodium (137-145) mmol/L Potassium (3.5-5.1) mmol/L Chloride (98-107) mmol/L Carbon Dioxide (22-30) mmol/L Anion Gap mmol/L BUN (7-17) mg/dL Creatinine (0.52-1.04) mg/dL Est GFR (CKD-EPI)AfAm (>60 ml/min/1.73 sqM) Est GFR (CKD-EPI)NonAf (>60 ml/min/1.73 sqM) Glucose (74-99) mg/dL Plasma Lactic Acid Luisito 1.2 (0.7-2.0) mmol/L Calcium (8.4-10.2) mg/dL Total Bilirubin (0.2-1.3) mg/dL AST (14-36) U/L ALT (4-34) U/L Alkaline Phosphatase (38-126) U/L Total Protein (6.3-8.2) g/dL Albumin (3.5-5.0) g/dL Urine Color Urine Appearance (Clear) Urine pH (5.0-8.0) Ur Specific Franklin (1.001-1.035) Urine Protein (Negative) Urine Glucose (UA) (Negative) Urine Ketones (Negative) Urine Blood (Negative) Urine Nitrite (Negative) Urine Bilirubin (Negative) Urine Urobilinogen (<2.0) mg/dL Ur Leukocyte Esterase (Negative) Urine RBC (0-5) /hpf Urine WBC (0-5) /hpf Ur Squamous Epith Cells (0-4) /hpf Urine Bacteria (None) /hpf Urine Mucus (None) /hpf Disposition <Tiarra Phan - Last Filed: 01/26/24 18:11> Is patient prescribed a controlled substance at d/c from ED?: No <Horace Alva - Last Filed: 02/17/24 06:40> Clinical Impression: Back pain Disposition: HOME SELF-CARE Condition: Good Instructions (If sedation given, give patient instructions): Back Pain (ED) Referrals: Carmella Cordon MD [Primary Care Provider] - 1-2 days
[2024-01-26 18:14] VITALS: PULSE 74; RESP 16; TEMP 98.2
[2024-01-26] MEDS: SODIUM CHLORIDE 0.9% 500 ML 500 ML IV STA (21:56)
[2024-01-26] MEDS: KETOROLAC 15 MG/ML 1 ML VIAL IVP STA (21:56)
[2024-01-26 22:48] LABS: Basophils # (A) 0.1 k/uL (0-0.2); Basophils % (A) 0 %; Eosinophils # (A) 0.2 k/uL (0-0.7); Eosinophils % (A) 2 %; HCT 36.3 % (34.0-46.0); HGB 11.6 gm/dL (11.4-16.0); Lymphocytes # (A) 3.2 k/uL (1.0-4.8); Lymphocytes % (A) 31 %; MCH 29.2 pg (25.0-35.0); MCV 91.3 fL (80.0-100.0); Mean Platelet Volume 7.3; Monocytes # (A) 0.5 k/uL (0-1.0); Monocytes % (A) 5 %; Neutrophils # (A) 6.1 k/uL (1.3-7.7); Neutrophils % (A) 60 %; Platelet Count 320 k/uL (150-450); RBC 3.97 m/uL (3.80-5.40); RDW 13.2 % (11.5-15.5); WBC 10.3 k/uL (3.8-10.6)
[2024-01-26 22:54] LABS: Appearance,Urine Clear (Clear); Bacteria,Urine Occasional /hpf; Bilirubin,Urine Negative (Negative); Blood,Urine Negative (Negative); Color,Urine Colorless; Glucose,Urine (UA) Negative (Negative); Ketones,Urine Negative (Negative); Leukocyte Esterase,Urine Negative (Negative); Mucus,Urine Rare /hpf; Nitrite,Urine Positive (Negative); Protein,Urine Negative (Negative); RBC,Urine 1 /hpf (0-5); Specific Gravity,Urine 1.011 (1.001-1.035); Squamous Epithelial Cell,Urine 1 /hpf (0-4); Urobilinogen,Urine <2.0 mg/dL (<2.0); WBC,Urine 3 /hpf (0-5)
[2024-01-26 23:01] LABS: ALT 17 U/L (4-34); AST 24 U/L (14-36); African American GFR (CKD) 82 (>60 ml/min/1.73 sqM); Albumin 3.9 g/dL (3.5-5.0); Alkaline Phosphatase 103 U/L (38-126); Anion Gap 7 mmol/L; Blood Urea Nitrogen 14 mg/dL (7-17); Calcium 9.2 mg/dL (8.4-10.2); Carbon Dioxide 23 mmol/L (22-30); Chloride 108 mmol/L (98-107); Glucose 84 mg/dL (74-99); Non-African American GFR(CKD) 71 (>60 ml/min/1.73 sqM); Potassium 4.7 mmol/L (3.5-5.1); Sodium 138 mmol/L (137-145); Total Bilirubin 0.3 mg/dL (0.2-1.3); Total Protein 6.2 g/dL (6.3-8.2)
--- NOTE | 2024-01-27 00:04 | CT ---
EXAM: CT Abdomen and Pelvis Without Intravenous Contrast CLINICAL HISTORY: ITS.REASON CT Reason: right flank pain, possible stone TECHNIQUE: Axial computed tomography images of the abdomen and pelvis without intravenous contrast. CTDI is 8.5 mGy and DLP is 469.3 mGy-cm. This CT exam was performed using one or more of the following dose reduction techniques: automated exposure control, adjustment of the mA and/or kV according to patient size, and/or use of iterative reconstruction technique. COMPARISON: No relevant prior studies available. FINDINGS: Lung bases: Unremarkable. No mass. No consolidation. ABDOMEN: Liver: Unremarkable. Gallbladder and bile ducts: Unremarkable. No calcified stones. No ductal dilation. Pancreas: Unremarkable. No ductal dilation. Spleen: Unremarkable. No splenomegaly. Adrenals: Unremarkable. No mass. Kidneys and ureters: Unremarkable. No obstructing stones. No hydronephrosis. Stomach and bowel: Diverticulosis, without acute diverticulitis. No small bowel obstruction. No free intraperitoneal air. PELVIS: Appendix: Normal appendix. Bladder: Unremarkable. No stones. Reproductive: Unremarkable as visualized. ABDOMEN and PELVIS: Intraperitoneal space: Unremarkable. No free air. No significant fluid collection. Bones/joints: Degenerative changes of the spine. No acute fracture. No dislocation. Soft tissues: Unremarkable. Vasculature: Atherosclerotic changes of the aorta. No abdominal aortic aneurysm. Lymph nodes: Unremarkable. No enlarged lymph nodes. IMPRESSION: No acute findings in the abdomen or pelvis.
[2024-01-27 01:31] VITALS: BP 186/85
== END 2024-01-27 01:07 | disposition home or self-care (01) ==
LOC: EC 17:50
DX: M54.9 Dorsalgia, unspecified (principal); Z91.041 Radiographic dye allergy status
CPT/HCPCS: 36415; 80053; 83605; 85025; 81001; 74176; 99284; 96374; 96361; J1885